=== PATIENT | female | born 1955 | race Caucasian/White ===

== ENCOUNTER 2019-01-06 07:30 | Day surgery (SDC) | payer OTHER ==
[~2019-01-06] VITALS: Ht 154.9 cm; Wt 99.1 kg
[2019-01-06] VITALS (9 sets, daily range): BP systolic 127–158; BP diastolic 69–95; PULSE 72–90; RESP 16–27; Ht 154.9 cm; Wt 99.1 kg
[~2019-01-06 07:30] MED LIST: CEFAZOLIN 2 GM/50 ML (PMX) 50 ML IVPB ONE; DESFLURANE 15 MIN ONE; GLYCOPYRROLATE 0.4 MG INJ ONE; NEOSTIGMINE 3 MG/3 ML SYRINGE ONE
[2019-01-06] MEDS ORDERED: LISI-471 PO (08:24)
[2019-01-06] MEDS ORDERED: HYDR-3671 PO (08:25)
[2019-01-06] MEDS ORDERED: UBID100C24 PO (08:25)
[2019-01-06] MEDS ORDERED: ISOS60TA PO (08:25)
[2019-01-06] MEDS ORDERED: PANT40TA3 PO (08:26)
[2019-01-06] MEDS ORDERED: CARV3.1260 PO (08:27)
[2019-01-06] MEDS ORDERED: ATOR40TA68 PO (08:27)
[2019-01-06] MEDS ORDERED: CHOL100062 PO (08:29)
[2019-01-06] MEDS ORDERED: NOVO3I SC (08:29)
[2019-01-06] MEDS ORDERED: LANT3I SC (08:30)
--- NOTE | 2019-01-06 11:35 | PREAC ---
Date/Time of Note Date/Time of Note DATE: 01/06/19 TIME: 11:34 Anesthesia Eval and Record Evaluation Time Pre-Procedure Interview DATE: 01/06/19 TIME: 11:34 Age 63 Sex female NPO: 8 hrs Preoperative diagnosis bladder tumor Planned procedure TURBT Past Medical History Past Medical History: Includes Cardio: HTN, Dyslipidemia Endo: Diabetes GI: GERD, Morbid obesity Surgery & Anesthesia Issues No known issue Meds Anticoagulation: No Beta Candace within 24 hr: No Reason Beta Candace not given: Pt. not on B-Candace Reported Medications Insulin Glargine* (Lantus*) 100 Unit/Ml Soln, 15 UNIT SC QHS, #1 VIAL 01/06/19 Insulin Aspart* (Novolog Insulin Pen*) 100 Unit/Ml Soln, 0 SC .SLIDING SCALE AC, EA AC MEALS 01/06/19 Cholecalciferol* (Vitamin D3*) 1,000 Unit Tablet, 1000 UNIT PO DAILY, TAB 01/06/19 Atorvastatin* (Atorvastatin*) 40 Mg Tablet, 40 MG PO QHS, #30 TAB 01/06/19 Carvedilol* (Carvedilol*) 3.125 Mg Tablet, 3.125 MG PO BID, #60 TAB 01/06/19 Pantoprazole* (Protonix*) 40 Mg Tablet.dr, 40 MG PO DAILY, TAB 01/06/19 Hydralazine Hcl* (Hydralazine Hcl*) 25 Mg Tab, 25 MG PO Q6H PRN for BLOOD PRESSURE SUPPORT, #60 TAB 01/06/19 Ubidecarenone (Coq-10) 100 Mg Capsule, 100 MG PO DAILY, CAP 01/06/19 Isosorbide Mononitrate* (Isosorbide Mononitrate*) 60 Mg Tab.er.24h, 60 MG PO DAILY, TAB 01/06/19 Lisinopril* (Lisinopril*) 20 Mg Tablet, 20 MG PO DAILY, #30 TAB 01/06/19 Meds reviewed: Yes Allergies Coded Allergies: No Known Allergy (Unverified , 01/06/19) Allergies Reviewed: Yes Labs/Studies Labs Reviewed: Reviewed by anesthesiologist test: Negative Studies: ECG Pre-procedure Exam Last vitals Vital Signs Date Temp Pulse Resp B/P (MAP) Pulse Ox O2 O2 Flow FiO2 Time Delivery Rate 5/15/19 98.3 90 16 141/88 95 Room Air 08:37 (105) Airway: Adequate mouth opening, Adequate thyromental dist Mallampati: Mallampati II Teeth: Normal Lung: Normal Heart: Normal ASA Physical Status ASA physical status: 3 Emergency: None Planned Anesthetic General/MAC: ETT Pre-operative Attestations Prior to commencing anesthesia and surgery, the patient was re-evaluated, there was verification of: *The patient's identity *The results of appropriate recent lab work and preoperative vital signs *The above evaluation not changing prior to induction *Anesthetic plan, risk benefits, alternative and complications discussed with patient/family; questions answered; patient/family understands, accepts and wishes to proceed. JO-ANN WILKINS January 06, 2019 11:35
[2019-01-06] MEDS ORDERED: DIPHENHYDRAMINE 50 MG INJ IV PRN (12:00)
[2019-01-06] MEDS ORDERED: FENTAnyl 50 MCG/ML VIAL IV PRN ×3 (12:00)
[2019-01-06] MEDS ORDERED: ONDANSETRON 4 MG INJ IV PRN (12:00)
[2019-01-06] MEDS ORDERED: METOCLOPRAMIDE 10 MG INJ IV PRN (12:00)
[2019-01-06] MEDS ORDERED: ALBUTEROL 0.083% (NEB) 2.5 MG/3 ML AMP HHN PRN (12:00)
[2019-01-06] MEDS ORDERED: HYDROmorphONE 1 MG/5 ML IV SYRINGE IV PRN ×3 (12:00)
[2019-01-06] MEDS ORDERED: FENTAnyl 50 MCG/ML VIAL ONE (12:09)
[2019-01-06] MEDS ORDERED: CEFAZOLIN 1 GM INJ ONE (12:29)
[2019-01-06] MEDS ORDERED: ROCURONIUM 50 MG INJ ONE (12:29)
[2019-01-06] MEDS ORDERED: PROPOFOL 20 ML ONE (12:29)
[2019-01-06] MEDS ORDERED: SUCCINYLCHOLINE CHLORIDE 100 MG/5 ML SYG IV ONE (12:29)
[2019-01-06] MEDS ORDERED: LIDOCAINE 100 MG SYRINGE ONE (12:29)
[2019-01-06] MEDS ORDERED: LABETALOL HCL 20MG INJ ONE (12:41)
--- NOTE | 2019-01-06 12:51 | SIPON ---
Date/Time of Note Date/Time of Note DATE: 01/06/19 TIME: 12:50 Operative Report Preoperative Diagnosis bladder tumor Postoperative Diagnosis Bladder tumor Operation/Procedure Performed Transurethral resection bladder tumor Surgeon see signature line surgical services assistant None Anesthesia: general Estimated blood loss: 0 - 10 ml's Transfusion Required none Specimen bladder tumor at left bladder neck Deep resection at site of bladder tumor at left bladder neck Grafts/Implants none Complications none WILLY BASURTO January 06, 2019 12:51
--- NOTE | 2019-01-06 12:56 | PDOCDIS ---
Discharge Instructions DIAGNOSIS Discharge Diagnosis Bladder tumor CONDITION [id number] Patient Condition: Awalq0o Good HOME CARE INSTRUCTIONS: [id number] Diet Instructions: [id number] Regular (Diabetic) ACTIVITY: [id number] Activity Restrictions: [id number] Avoid heavy lifting No Sexual Activity [id number] Bathing Restrictions: [id number] Shower FOLLOW UP/APPOINTMENTS Follow-up Plan One week OTHER ORDERS: Other Orders: Keep grace catheter to gravity until follow up appointment. Catheter will be removed in Dr. Samson's office SCHOOL/WORK RELEASE May return to School/Work on: January 12, 2019 May return to School/Work with: With Restrictions (No straining and no lifting more than 5 Lb until 01/29/19) WILLY SAMSON January 06, 2019 12:56
--- NOTE | 2019-01-06 12:58 | DS ---
Date/Time of Note Date/Time of Note DATE: 01/06/19 TIME: 12:56 Discharge Summary Admission/Discharge Info Admit Date/Time 01/06/19 Discharge Date/Time 01/06/19 Discharge Diagnosis bladder cancer Patient Condition: Good Consults None Procedures Transurethral resection bladder tumor Hx of Present Illness Hx gross hematuria, bx proven bladder cancer Hospital Course Pt underwent above surgery and trasferred to PACU. Once she was stable, tolerating PO, remaining afebrile, and pain was well controlled, she was DC'd home with urethral grace catheter Home Meds Reported Medications Insulin Glargine* (Lantus*) 100 Unit/Ml Soln, 15 UNIT SC QHS, #1 VIAL 01/06/19 Insulin Aspart* (Novolog Insulin Pen*) 100 Unit/Ml Soln, 0 SC .SLIDING SCALE AC, EA AC MEALS 01/06/19 Cholecalciferol* (Vitamin D3*) 1,000 Unit Tablet, 1000 UNIT PO DAILY, TAB 01/06/19 Atorvastatin* (Atorvastatin*) 40 Mg Tablet, 40 MG PO QHS, #30 TAB 01/06/19 Carvedilol* (Carvedilol*) 3.125 Mg Tablet, 3.125 MG PO BID, #60 TAB 01/06/19 Pantoprazole* (Protonix*) 40 Mg Tablet.dr, 40 MG PO DAILY, TAB 01/06/19 Hydralazine Hcl* (Hydralazine Hcl*) 25 Mg Tab, 25 MG PO Q6H PRN for BLOOD PRESSURE SUPPORT, #60 TAB 01/06/19 Ubidecarenone (Coq-10) 100 Mg Capsule, 100 MG PO DAILY, CAP 01/06/19 Isosorbide Mononitrate* (Isosorbide Mononitrate*) 60 Mg Tab.er.24h, 60 MG PO DAILY, TAB 01/06/19 Lisinopril* (Lisinopril*) 20 Mg Tablet, 20 MG PO DAILY, #30 TAB 01/06/19 Follow-up Plan One week Primary Care Provider Not On Staff Doctor Time spent on discharge: < 30 minutes Pending Labs Laboratory Tests Test 01/06/19 08:31 Bedside Glucose 170 mg/dL (70-220) WILLY BASURTO January 06, 2019 12:58
--- NOTE | 2019-01-06 14:01 | PAC ---
Date/Time of Note Date/Time of Note DATE: 01/06/19 TIME: 14:01 Post-Anesthesia Notes Post-Anesthesia Note Last documented vital signs Vital Signs Date Temp Pulse Resp B/P (MAP) Pulse Ox O2 O2 Flow FiO2 Time Delivery Rate 01/06/19 80 21 144/79 96 Room Air 13:28 (100) 01/06/19 98.1 13:03 Activity: WNL Respiratory function: WNL Cardiovascular function: WNL Mental status: Baseline Pain reasonably controlled: Yes Hydration appropriate: Yes Nausea/Vomiting absent: Yes JO-ANN WILKINS January 06, 2019 14:01
--- NOTE | 2019-01-06 14:55 | HP ---
DATE OF ADMISSION: 01/06/2019 CHIEF COMPLAINT: Gross hematuria. HISTORY OF PRESENT ILLNESS: This is a 63-year-old female with history of gross hematuria, underwent a workup. On 10/30/2018, cystoscopy revealed papillary bladder tumor. Biopsy revealed low-grade alia dder cancer. A CT scan of abdomen and pelvis revealed no evidence of metastatic disease. The patien t has had intermittent gross hematuria. The hematuria has self-resolved. She has not had any fevers , chills or dysuria. Furthermore, the tumor appears to be about 1 cm on imaging and cystoscopy. PAST MEDICAL HISTORY: Includes stage III renal failure, history of uterine cancer status post radica l hysterectomy. No chemo, no radiation were given. The patient also has hypertension, hyperlipidemi a, diabetes. PAST SURGICAL HISTORY: Total abdominal hysterectomy, bilateral salpingo-oophorectomy, appendectomy, ectopic . FAMILY HISTORY: Mother with colon cancer. Father with colon cancer. SOCIAL HISTORY: Does not drink alcohol. The patient does not smoke. ALLERGIES: NO KNOWN DRUG ALLERGIES. MEDICATIONS: 1. Atorvastatin. 2. Carvedilol. 3. Hydralazine. 4. Isosorbide. 5. Lisinopril. 6. Pantoprazole. REVIEW OF SYSTEMS: CONSTITUTIONAL: No fevers, no chills, no change in appetite, weight gain or weight loss. HEENT: No loss of hearing. No ears or sinus pain. No rhinorrhea, nosebleed or sore throat. CARDIOVASCULAR: No chest pain, no shortness of breath, no heart palpitations. RESPIRATORY: No cough, no phlegm production or visible hemoptysis. GASTROINTESTINAL: No abdominal pain, no cramping, no nausea. MUSCULOSKELETAL: No bone pain. No change in strength or joint pain. INTEGUMENTARY: No skin rash or lesions. NEUROLOGICAL: No dizziness, no headaches, no numbness. PSYCHIATRIC: The patient is anxious over her upcoming procedure. HEMATOLOGIC AND LYMPHATIC: No known bleeding problems other than gross hematuria. No lymph node enl argement. PHYSICAL EXAMINATION: CONSTITUTIONAL: The patient appears to be in no acute distress. GASTROINTESTINAL: Abdomen is soft. Normal bowel sounds. Nondistended, nontender. Hernia exam none noted. Liver and spleen are normal. GENITOURINARY: Kidneys: No CVA tenderness. Bladder: No fullness. EXTREMITIES: No edema. ASSESSMENT: 1. Bladder cancer. 2. Chronic renal insufficiency. RECOMMENDATIONS: I have spoken with the patient in detail about the natural history and biology of b ladder tumors, bladder cancers. We have discussed various treatment options. She understands the op tions include but not limited to no treatment, chemotherapy, radiation, transurethral resection of bl adder tumor. Among these options I have recommended, the patient has elected to undergo transurethra l resection of bladder tumor. This procedure has been explained to the patient in detail. He unders tands the risks include but not limited to infection, bleeding, damage to adjacent structures, heart problems, lung problems, possibility of need for further surgery, DVT, PE, ID, CVA, nonresolution of symptoms, recurrence of symptoms, need for other treatments, need for other surgeries, bladder perfor ation, gross hematuria, urinary retention, urinary incontinence, need for placement of the stent and then removal of the stent. This procedure has been explained to the patient in detail. Risks and be nefits have been discussed. All of her questions have been answered. No guarantees were given. She would like to proceed. Dictated By: WILLY BASURTO MD, SR/NTS Conf#: [id number] DID#: [id number]
--- NOTE | 2019-01-06 15:44 | OPR ---
DATE OF OPERATION: 01/06/2019 PREOPERATIVE DIAGNOSIS: Bladder cancer. POSTOPERATIVE DIAGNOSIS: Bladder cancer. PROCEDURE PERFORMED: Transurethral resection of bladder tumor. INDICATIONS FOR PROCEDURE: The patient has a history of gross hematuria. Her workup has revealed a tumor in her bladder which on small biopsy in my office had revealed bladder cancer. She is now sche duled to undergo transurethral resection of bladder tumor. Procedure has been explained to the patie nt in detail. Risks and benefits have been discussed. All of her questions have been answered. No guarantees were given. She would like to proceed. FINDINGS: The tumor was located at the 9 o'clock position of the bladder neck on the right side. It appeared to be papillary and superficial. The tumor was about 2 cm in size. At the end of the proc edure, the entire tumor had been resected. PROCEDURE IN DETAIL: The patient was brought to the operating room, underwent general anesthesia. S he was placed in lithotomy position. Abdomen, perineum and genitalia were prepped and draped in usua l sterile fashion. A 22-[place] cystoscope was placed transurethrally. Urethra was examined. The bl adder tumor was identified at the 9 o'clock position at the bladder neck which was about 2 cm. The t umor was papillary. The rest of the bladder was examined. No other tumors were seen within the blad jerri. Ureteral orifices were orthotopic. Bladder mucosa contained 1+ trabeculation. The lateral wal l, inferior wall, posterior, anterior dome of the bladder wall were all examined. No other tumors we re seen. The rest of the bladder mucosa appeared to be normal. The 26-[place] continuous resecting sheath was placed under direct vision. The bipolar resecting inst rument was then used for resecting the tumor. The tumor was resected along its stalk using the bipol ar electrocautery. Resection was carried down to the mucosal layer. The tumor specimen that had bee n removed in this fashion were collected and sent to pathology as bladder tumor resection at right bl adder neck. Next, the resecting loop was used to resect deeper into the bladder neck into what appea red to be muscularis layer. The deeper resection was also collected and sent to pathology as a deep resection outside the bladder tumor, bladder neck. A cautery loop was then used to obtain excellent hemostasis at the area of resection. Bladder was re examined. Ureteral orifices were orthotopic and well away from the area of resection. No other abno rmalities were seen. The resectoscope was discontinued. A 20-[place] catheter was placed. Catheter was hand irrigated. Irrigant was clear. The catheter was then placed down to gravity to a bag. The patient was then awakened, extubated and taken to recovery room in stable condition. POSTOPERATIVE CONDITION: Stable. COMPLICATIONS: None. BLOOD LOSS: Less than 10 mL. BLOOD ADMINISTERED: None. SPECIMENS SENT TO LABORATORY: Bladder tumor and deep resection from outside of bladder tumor. Dictated By: WILLY BASURTO MD SR/NTS Conf#: [id number] DID#: [id number]
== END 2019-01-06 14:28 | disposition home or self-care (01) ==
LOC: SDS 07:30
PROVIDERS: ATTEND Surgery Surgical Oncology
DX: C67.5 Malignant neoplasm of bladder neck (principal); I10 Essential (primary) hypertension; E11.9 Type 2 diabetes mellitus without complications; E78.5 Hyperlipidemia, unspecified; K21.9 Gastro-esophageal reflux disease without esophagitis; E66.01 Morbid (severe) obesity due to excess calories
CPT/HCPCS: 52234; 82962; 88305; J0690; J1170; J2001; J2405; J2710; J2765; J3010